=== PATIENT | male | born 1980 | race Hispanic/Latino ===

== ENCOUNTER 2018-12-20 18:24 | Emergency (ER) | payer BC ==
--- NOTE | 2018-12-20 21:59 | ULT ---
ULTRASOUND DOPPLER DUPLEX VENOUS RIGHT LOWER EXTREMITY: DATE: 12/20/2018 HISTORY: Right lower extremity pain in 38-year-old male. TECHNIQUE: Grayscale, color-flow, and spectral analysis, of major veins of right lower extremity. FINDINGS: There is demonstration of blood flow with normal compressibility, of the right common femoral, profun da femoral, greater saphenous, femoral, popliteal, and posterior tibial, veins. There are occluded, thrombosed veins in the thigh and calf, involving what is probably lesser saphenous vein. There is a very tortuous, occluded, thrombosed superficial vein at the medial aspect of the knee and calf, possibly representing the distal portion of the greater saphenous vein. IMPRESSION: 1. Positive for superficial venous thrombophlebitis. 2. No deep venous thrombosis of right lower extremity.
== END 2018-12-20 22:26 | disposition home or self-care (01) ==
LOC: ERS 18:24
DX: I80.01 Phlebitis and thrombophlebitis of superficial vessels of right lower extremity (principal); L03.115 Cellulitis of right lower limb